=== PATIENT | male | born 1940 | race Two or more races ===

== ENCOUNTER 2022-12-17 07:06 | Outpatient (CLI) | payer OTHER | END 2022-12-17 07:19 | disposition home or self-care (01) | LOC: RX STUDY 07:06 | DX: R10.13 Epigastric pain (principal) ==

== ENCOUNTER 2023-04-23 15:37 | Emergency (ER) | payer OTHER ==
[~2023-04-23] VITALS: Ht 177.8 cm; Wt 66.2 kg
== END 2023-04-23 19:34 ==
LOC: ER 15:38
DX: M70.32 Other bursitis of elbow, left elbow (principal); Z88.0 Allergy status to penicillin; Z91.041 Radiographic dye allergy status; Z88.2 Allergy status to sulfonamides; Z91.013 Allergy to seafood; E11.9 Type 2 diabetes mellitus without complications; I10 Essential (primary) hypertension